=== PATIENT | female | born 1985 ===

== ENCOUNTER 2016-12-03 12:35 | Emergency (ER) | payer MEDICAID, OTHER ==
[2016-12-03 12:36] VITALS: BMI 34.4
[2016-12-03 12:52] VITALS: O2SAT 100
[2016-12-03] MEDS ORDERED: Sodium Chloride 0.9% 1,000 ML IV STA (13:34)
--- NOTE | 2016-12-03 13:49 | ED PDOC ---
Arrival/HPI <Eduard Salas - Last Filed: 12/03/16 14:02> - General Historian: Patient, Partner - History of Present Illness Time/Duration: 24 hours Symptom Onset: Sudden Symptom Course: Unchanged Quality: Cramping Activities at Onset: Rest Context: Home <YIMI PATEL - Last Filed: 12/03/16 15:05> - General Chief Complaint: Fever - History of Present Illness Narrative History of Present Illness (Text): 12/03/16 13:38 Ms. 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 Patient speaks mostly kyrgyz and translation was provided by patients significant other when needed. Patient reports that late last night around midnight she had 2-3 episodes of cream colored, non-bloody, non-bilious and non-projectile vomiting. Patient also reports subjective fever, which was not measured, and chills at that time that she has not experienced since last night. She reports that she also had a few episodes of non-bloody watery diarrhea since this time as well. Patient reports that she has not experienced this before and also reports that she hasn't taken any medications since this all started. She states that she has not been able to tolerate PO intake of fluids without N/V since this started. She endorses ROS as listed above and denies weight loss, headache, vision changes, dysphagia, chest pain, palpitations, SOB, cough, wheezing, burning with urination, abnormal vaginal bleeding or any numbness/tingling/ weakness of any of her extremities. (YIMI PATEL) Past Medical History - Provider Review Nursing Documentation Reviewed: Yes - Travel History Have you recently traveled outside [place] w/in the past 3 mons?: No - Past History Past History: Non-Contributing - Infectious Disease Hx of Infectious Diseases: None - Tetanus Immunization Tetanus Immunization: Unknown - Reproductive Menopause: No - Cardiac Hx Cardiac Disorders: No - Pulmonary Hx Respiratory Disorders: No - Neurological Hx Neurological Disorder: No - HEENT Hx HEENT Disorder: No - Renal Hx Renal Disorder: No - Endocrine/Metabolic Hx Endocrine Disorders: No - Hematological/Oncological Hx Blood Disorders: Yes Hx Anemia: Yes - Integumentary Hx Dermatological Disorder: No - Musculoskeletal/Rheumatological Hx Musculoskeletal Disorders: No - Gastrointestinal Hx Gastrointestinal Disorders: No - Genitourinary/Gynecological Hx Genitourinary Disorders: Yes (PELVIC PAIN) - Psychiatric Hx Psychophysiologic Disorder: No Hx Substance Use: No - Surgical History Other/Comment: PELVIC LAPAROTOMY, OVARIAN CYSTECTOMY - Anesthesia Hx Anesthesia: Yes Hx Anesthesia Reactions: No Hx Malignant Hyperthermia: No <YIMI PATEL - Last Filed: 12/03/16 15:05> Family/Social History - Physician Review Nursing Documentation Reviewed: Yes Family/Social History: No Known Family HX Smoking Status: Light Smoker < 10 Cigarettes Daily Hx Alcohol Use: No Hx Substance Use: No <YIMI PATEL - Last Filed: 12/03/16 15:05> Allergies/Home Meds <Eduard Salas - Last Filed: 12/03/16 14:02> <YIMI PATEL - Last Filed: 12/03/16 15:05> Allergies/Adverse Reactions: Allergies No Known Allergies Allergy (Verified 12/03/16 12:50) Review of Systems - Physician Review All systems were reviewed & negative as marked: Yes - Review of Systems Constitutional: Fevers, Other (chills). absent: Normal Eyes: Normal. absent: Vision Changes ENT: Normal. absent: Sore Throat Respiratory: Normal. absent: SOB, Cough, Wheezing Cardiovascular: Normal. absent: Chest Pain, Palpitations Gastrointestinal: Stool Changes, Diarrhea (non bloody), Nausea, Vomiting (non bloody, non bilious, and non projectile). absent: Normal Genitourinary Female: Normal. absent: Dysuria Musculoskeletal: Normal. absent: Back Pain, Neck Pain Skin: Normal. absent: Rash Neurological: Normal. absent: Headache, Dizziness <YIMI PATEL - Last Filed: 12/03/16 15:05> Physical Exam Vital Signs Reviewed: Yes Temperature: Afebrile Blood Pressure: Normal Pulse: Tachycardic Respiratory Rate: Normal Appearance: Positive for: Well-Appearing, Non-Toxic, Comfortable Pain Distress: None Mental Status: Positive for: Alert and Oriented X 3 - Systems Exam Head: Present: Atraumatic, Normocephalic Pupils: Present: PERRL Extroacular Muscles: Present: EOMI Conjunctiva: Present: Normal Ears: Present: Normal Mouth: Present: Dry Pharnyx: Present: Normal. No: ERYTHEMA, EXUDATE, TONSILS ENLARGED Neck: Present: Normal Range of Motion, Trachea Midline. No: Meningeal Signs, JVD Respiratory/Chest: Present: Clear to Auscultation, Good Air Exchange. No: Respiratory Distress, Accessory Muscle Use, Wheezes, Decreased Breath Sounds, Rales, Retracting, Rhonchi, Tachypneic, Tender to Palpation Cardiovascular: Present: Normal S1, S2, Peripheal Pulses Present, Tachycardic. No: Regular Rate and Rhythm, Murmurs, Irregular Rhythm, Bradycardic, Rub, Gallop , Muffled Abdomen: Present: Normal Bowel Sounds, Other (Negative murphys sign). No: Tenderness, Distention, Peritoneal Signs, Rebound, Guarding Back: Present: Normal Inspection. No: CVA Tenderness, Midline Tenderness, Paraspinal Tenderness Upper Extremity: Present: Normal Inspection, Normal ROM, NORMAL PULSES, Capillary Refill < 2s. No: Cyanosis, Edema Lower Extremity: Present: Normal Inspection, NORMAL PULSES, Capillary Refill < 2 s. No: Edema, CALF TENDERNESS Neurological: Present: GCS=15, CN II-XII Intact, Speech Normal Skin: Present: Warm, Dry, Normal Color. No: Rashes Lymphatic: No: Cervical Adenopathy Psychiatric: Present: Alert, Oriented x 3, Normal Insight, Normal Concentration <YIMI PATEL - Last Filed: 12/03/16 15:05> Vital Signs Temp Pulse Resp BP Pulse Ox 12/03/16 14:56 98 F 99 H 20 130/72 100 12/03/16 12:51 99.4 F 120 H 18 144/86 100 Medical Decision Making <Eduard Salas - Last Filed: 12/03/16 14:02> - Lab Interpretations I have reviewed the lab results: Yes - EKG Interpretation Interpreted by ED Physician: Yes Type: 12 lead EKG <YIMI PATEL - Last Filed: 12/03/16 15:05> ED Course and Treatment: 12/03/16 14:03 Pt seen and evaluated with the medical billing supervisor.Agree with HPI,clinical findings ,and treatment plan. 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 Plan: -CBC, CMP, Lipase -EKG for tachycardia -1L NS bolus -4mg Zofran ODT -Reassess and disposition Prior Visits: All reports and results from previous visits were reviewed. Several Visits from April to July of this year for abnormal vaginal bleeding/ uterine pain and was eventually diagnosed with endometrial polyp and borderline serous tumor of left ovary that was surgically removed. 12/03/16 14:50 Patient reports feeling subjectively better overall after zofran and NS bolus. Discussed with patient pertinent lab findings and the importance of following up with her primary care doctor. She verbalizes understaning and is in agreement. Patient stating that she wants to go home at this time. (YIMI PATEL) - Lab Interpretations Lab Results: 12/03/16 14:10 12/03/16 14:10 Lab Results 12/03/16 14:10: Sodium 141, Potassium 3.9, Chloride 102, Carbon Dioxide 26, Anion Gap 17, BUN 13, Creatinine 0.7, Est GFR ( Amer) > 60, Est GFR (Non- Af Amer) > 60, Random Glucose 104, Calcium 9.2, Total Bilirubin 0.8, AST 220 H, ALT 124 H, Alkaline Phosphatase 110, Total Protein 7.7, Albumin 4.6, Globulin 3.1, Albumin/Globulin Ratio 1.5, Lipase 111 12/03/16 14:10: WBC 10.9, RBC 4.79, Hgb 10.4 L, Hct 35.6 L, MCV 74.3 L, MCH 21.7 L, MCHC 29.2 L, RDW 14.7 H, Plt Count 302, MPV 9.9, Gran % 87.9 H, Lymph % (Auto) 7.9 L, Iron % (Auto) 3.9, Eos % (Auto) 0.2 L, Baso % (Auto) 0.1, Gran # 9.59 H, Lymph # 0.9 L, Iron # 0.4, Eos # 0.0, Baso # 0.01 - EKG Interpretation EKG Interpretation (Text): 12/03/16 13:57 Sinus tachycardia at 120bpm (YIMI PATEL) - Medication Orders Current Medication Orders: Discontinued Medications Sodium Chloride (Sodium Chloride 0.9%) 1,000 mls @ 999 mls/hr IV .Q1H1M STA Stop: 12/03/16 14:34 Last Admin: 12/03/16 13:49 Dose: 999 mls/hr eMAR Start Stop Document 12/03/16 13:49 IT (Rec: 12/03/16 13:51 IT [id number]) Intravenous Solution Start Date 12/03/16 Start Time 13:50 End Date 12/03/16 End time 14:50 Total Infusion Time 60 Ondansetron HCl (Zofran Odt) 4 mg PO STAT STA Stop: 12/03/16 13:38 Last Admin: 12/03/16 13:49 Dose: 4 mg - PA / ACADEMIC AFFAIRS SPECIALIST / Resident Statement / has reviewed & agrees with the documentation as recorded. / has examined the patient and agrees with the treatment plan. <Eduard Salas - Last Filed: 12/03/16 14:02> Disposition/Present on Arrival <Eduard Salas - Last Filed: 12/03/16 14:02> - Present on Arrival Any Indicators Present on Arrival: No History of DVT/PE: No History of Uncontrolled Diabetes: No Urinary Catheter: No History of Decub. Ulcer: No History Surgical Site Infection Following: None - Disposition Have Diagnosis and Disposition been Completed?: Yes Disposition Time: 15:05 <YIMI PATEL - Last Filed: 12/03/16 15:05> - Disposition Diagnosis: Viral gastroenteritis, Elevated liver enzymes Disposition: HOME/ ROUTINE Patient Problems: Current Active Problems Problem Status Onset Elevated liver enzymes Acute Viral gastroenteritis Acute Condition: IMPROVED Discharge Instructions (ExitCare): Gastroenteritis (ED) Additional Instructions: Beti Dial, thank you for letting us take care of you today. Your provider was Dr. Salas. You were treated for viral gastroenteritis. The emergency medical care you received today was directed at your acute symptoms. If you were prescribed any medication, please fill it and take as directed. It may take several days for your symptoms to resolve. Return to the Emergency Department if your symptoms worsen, do not improve, or if you have any other problems. PLEASE FOLLOW UP WITH YOUR PRIMARY CARE DOCTOR WITHIN ONE TO TWO WEEKS TO DISCUSS ELEVATED LIVER ENZYMES Please contact your doctor or call one of the physicians/clinics you have been referred to that are listed on the Patient Visit Information form that is included in your discharge packet. Bring any paperwork you were given at discharge with you along with any medications you are taking to your follow up visit. Our treatment cannot replace ongoing medical care by a primary care provider (PCP) outside of the emergency department. Thank you for allowing the [facility] team to be part of your care today. Prescriptions: Ondansetron ODT [Zofran ODT] 4 mg PO TID PRN #10 odt PRN Reason: Nausea/Vomiting Forms: [employer] (Ghanaian)
[2016-12-03 14:14] LABS: BASO # 0.01 K/mm3 (0.0-2.0); BASO % 0.1 % (0.0-3.0); EOS % 0.2 % (1.5-5.0); GRAN # 9.59 (1.4-6.5); GRAN % 87.9 % (50.0-68.0); HEMATOCRIT 35.6 % (36.0-48.0); LYMPH # 0.9 (1.2-3.4); LYMPH % 7.9 % (22.0-35.0); MEAN CELL VOLUME 74.3 fl (80.0-105.0); MEAN CORPUSCULAR HEMOGLOBIN 21.7 pg (25.0-35.0); MEAN CORPUSCULAR HGB CONC 29.2 g/dl (31.0-37.0); MEAN PLATELET VOLUME 9.9 fl (7.0-11.0); MONO # 0.4 (0.1-0.6); MONO % 3.9 % (1.0-6.0); RED CELL DISTRIBUTION WIDTH 14.7 % (11.5-14.5); WHITE BLOOD COUNT 10.9 10^3/ul (4.5-11.0)
[2016-12-03 14:24] LABS: ALB/GLOB RATIO 1.5 (1.1-1.8); ALKALINE PHOSPHATASE 110 U/L (38-126); ALT/SGPT 124 U/L (7-56); AST/SGOT 220 U/L (14-36); BILIRUBIN,TOTAL 0.8 mg/dL (0.2-1.3); BLOOD UREA NITROGEN 13 mg/dL (7-21); CALCIUM 9.2 mg/dL (8.4-10.5); CARBON DIOXIDE 26 mmol/L (21-33); CHLORIDE 102 mmol/L (98-107); GFR AFRICAN-AMERICAN > 60; GLUCOSE,RANDOM 104 mg/dL (70-110); LIPASE 111 U/L (23-300); POTASSIUM 3.9 mmol/L (3.6-5.0); SODIUM 141 mmol/L (132-148); TOTAL PROTEIN 7.7 g/dL (5.8-8.3)
[2016-12-03 14:57] VITALS: BP 130/72; PULSE 99; RESP 20; TEMP 98
--- NOTE | 2016-12-04 07:58 | CARD ---
APPROVED REPORT EKG Measurement Heart [id number] <Conclusion> Sinus tachycardia Incomplete right bundle branch block LAD PRWP Nonspecific T wave abnormality Prolonged QTc
== END 2016-12-03 15:08 | disposition home or self-care (01) ==
LOC: ED 12:35
DX: A08.4 Viral intestinal infection, unspecified (principal); R74.8 Abnormal levels of other serum enzymes
CPT/HCPCS: 80053; 83690; 85025; 93005; 96360; 99284; J7040

== ENCOUNTER 2017-02-26 19:22 | Emergency (ER) | payer MEDICAID ==
[2017-02-26 19:35] VITALS: BP 138/97; PULSE 79; RESP 18; TEMP 98.1; O2SAT 100; BMI 34.2
[2017-02-26] MEDS ORDERED: DiphenhydrAMINE 50 mg/ml Inj IVP STA (19:40)
--- NOTE | 2017-02-26 19:42 | ED PDOC ---
Arrival/HPI - General Chief Complaint: Headache Time Seen by Provider: 02/26/17 19:23 - History of Present Illness Narrative History of Present Illness (Text): 02/26/17 19:41 32 yo female, no prior hx, presents with frye. pt states frye started this am. pt states no fevers, nausea vomiting, diarrhea, blurry vision, neck pain. took advil with minimal relief. no other complaints. Past Medical History - Past History Past History: Non-Contributing - Infectious Disease Hx of Infectious Diseases: None - Tetanus Immunization Tetanus Immunization: Unknown - Cardiac Hx Cardiac Disorders: No - Pulmonary Hx Respiratory Disorders: No - Neurological Hx Neurological Disorder: No - HEENT Hx HEENT Disorder: No - Renal Hx Renal Disorder: No - Endocrine/Metabolic Hx Endocrine Disorders: No - Hematological/Oncological Hx Blood Disorders: Yes Hx Anemia: Yes - Integumentary Hx Dermatological Disorder: No - Musculoskeletal/Rheumatological Hx Musculoskeletal Disorders: No - Gastrointestinal Hx Gastrointestinal Disorders: No - Genitourinary/Gynecological Hx Genitourinary Disorders: Yes (PELVIC PAIN) - Psychiatric Hx Psychophysiologic Disorder: No Hx Substance Use: No - Surgical History Other/Comment: PELVIC LAPAROTOMY, OVARIAN CYSTECTOMY - Anesthesia Hx Anesthesia: Yes Hx Anesthesia Reactions: No Hx Malignant Hyperthermia: No Family/Social History - Physician Review Nursing Documentation Reviewed: Yes Family/Social History: Unknown Family HX Smoking Status: Never Smoked Hx Alcohol Use: Yes Frequency of alcohol use: Socially Hx Substance Use: No Allergies/Home Meds Allergies/Adverse Reactions: Allergies No Known Allergies Allergy (Verified 12/03/16 12:50) Review of Systems - Review of Systems Constitutional: Normal Eyes: Normal ENT: Normal Respiratory: Normal Cardiovascular: Normal Gastrointestinal: Normal Genitourinary Female: Normal Musculoskeletal: Normal Skin: Normal Neurological: Headache Endocrine: Normal Hemo/Lymphatic: Normal Psychiatric: Normal Physical Exam Vital Signs Temp Pulse Resp BP Pulse Ox 02/26/17 19:35 98.1 F 79 18 138/97 H 100 Temperature: Afebrile Blood Pressure: Normal Pulse: Regular Respiratory Rate: Normal Appearance: Positive for: Well-Appearing, Non-Toxic, Comfortable Pain Distress: None Mental Status: Positive for: Alert and Oriented X 3 - Systems Exam Head: Present: Atraumatic, Normocephalic Pupils: Present: PERRL Extroacular Muscles: Present: EOMI Conjunctiva: Present: Normal Mouth: Present: Moist Mucous Membranes Neck: Present: Normal Range of Motion Respiratory/Chest: Present: Clear to Auscultation, Good Air Exchange. No: Respiratory Distress, Accessory Muscle Use Cardiovascular: Present: Regular Rate and Rhythm, Normal S1, S2. No: Murmurs Abdomen: Present: Normal Bowel Sounds. No: Tenderness, Distention, Peritoneal Signs Back: Present: Normal Inspection Upper Extremity: Present: Normal Inspection. No: Cyanosis, Edema Lower Extremity: Present: Normal Inspection. No: Edema Neurological: Present: GCS=15, CN II-XII Intact, Speech Normal, Motor Func Grossly Intact, Normal Sensory Function, Normal Cerebellar Funct Skin: Present: Warm, Dry, Normal Color. No: Rashes Psychiatric: Present: Alert, Oriented x 3, Normal Insight, Normal Concentration Medical Decision Making ED Course and Treatment: 02/26/17 20:19 frye benign onsent - no thunderclap featrues well appearing in nad. 819 pt reassessd states all symptoms resolved. smiling. noted mild luekocytosis and anemia (known hx). pt declines further eval, requesting immediate dc w/o ua results. - Lab Interpretations Lab Results: 02/26/17 19:57 02/26/17 19:57 Lab Results 02/26/17 19:57: Sodium 139, Potassium 4.0, Chloride 103, Carbon Dioxide 24, Anion Gap 15, BUN 11, Creatinine 0.7, Est GFR ( Amer) > 60, Est GFR (Non- Af Amer) > 60, Random Glucose 92, Calcium 9.7, Total Bilirubin 0.3, AST 30, ALT 49, Alkaline Phosphatase 109, Total Protein 8.0, Albumin 4.4, Globulin 3.6, Albumin/Globulin Ratio 1.2 02/26/17 19:57: PT 12.6 H, INR 1.15 H, APTT 30.4 02/26/17 19:57: WBC 11.9 H, RBC 4.86, Hgb 8.9 L, Hct 33.1 L, MCV 68.1 L D, MCH 18.3 L, MCHC 26.9 L, RDW 16.6 H, Plt Count 408, MPV 9.8, Gran % 60.2, Lymph % ( Auto) 32.3, [place] % (Auto) 6.0, Eos % (Auto) 1.2 L, Baso % (Auto) 0.3, Gran # 7.16 H, Lymph # 3.8 H, [place] # 0.7 H, Eos # 0.1, Baso # 0.04 - Medication Orders Current Medication Orders: Discontinued Medications Diphenhydramine HCl (Benadryl) 25 mg IVP STAT STA Stop: 02/26/17 19:41 Last Admin: 02/26/17 19:50 Dose: 25 mg IVP Administration Document 02/26/17 19:50 OCS (Rec: 02/26/17 19:50 OCS [id number]) Charges for Administration # of IVP Administrations 1 Metoclopramide HCl (Reglan) 10 mg IVP STAT STA Stop: 02/26/17 19:41 Last Admin: 02/26/17 19:50 Dose: 10 mg IVP Administration Document 02/26/17 19:50 OCS (Rec: 02/26/17 19:50 OCS [id number]) Charges for Administration # of IVP Administrations 1 Disposition/Present on Arrival - Present on Arrival Any Indicators Present on Arrival: No History of DVT/PE: No History of Uncontrolled Diabetes: No Urinary Catheter: No History of Decub. Ulcer: No History Surgical Site Infection Following: None - Disposition Have Diagnosis and Disposition been Completed?: Yes Diagnosis: Headache, Anemia Disposition: HOME/ ROUTINE Disposition Time: 20:20 Condition: STABLE Discharge Instructions (ExitCare): Anemia (ED), Acute Headache (ED) Print Language: OCCITAN Additional Instructions: please discuss results of you labs with your doctor. return to any er with any worsening symptoms or concerns. Prescriptions: Acetaminophen/Butalbital/Caf [Fioricet] 1 tab PO Q8 PRN #20 tab PRN Reason: Headache Referrals: Floridalma Wallace MD [Primary Care Provider] - Follow up with primary [facility] [Outside] - Follow up with primary [facility] [Outside] - Follow up with primary Srinivas Bal MD [Staff Provider] - Follow up with primary Forms: [employer] (Bhutanese)
[2017-02-26 20:10] LABS: BASO # 0.04 K/mm3 (0.0-2.0); BASO % 0.3 % (0.0-3.0); EOS # 0.1 (0.0-0.7); EOS % 1.2 % (1.5-5.0); GRAN # 7.16 (1.4-6.5); GRAN % 60.2 % (50.0-68.0); HEMATOCRIT 33.1 % (36.0-48.0); LYMPH # 3.8 (1.2-3.4); LYMPH % 32.3 % (22.0-35.0); MEAN CELL VOLUME 68.1 fl (80.0-105.0); MEAN CORPUSCULAR HEMOGLOBIN 18.3 pg (25.0-35.0); MEAN CORPUSCULAR HGB CONC 26.9 g/dl (31.0-37.0); MEAN PLATELET VOLUME 9.8 fl (7.0-11.0); MONO # 0.7 (0.1-0.6); RED CELL DISTRIBUTION WIDTH 16.6 % (11.5-14.5); WHITE BLOOD COUNT 11.9 10^3/ul (4.5-11.0)
[2017-02-26 20:14] LABS: ALB/GLOB RATIO 1.2 (1.1-1.8); ALKALINE PHOSPHATASE 109 U/L (38-126); ALT/SGPT 49 U/L (7-56); AST/SGOT 30 U/L (14-36); BILIRUBIN,TOTAL 0.3 mg/dL (0.2-1.3); BLOOD UREA NITROGEN 11 mg/dL (7-21); CALCIUM 9.7 mg/dL (8.4-10.5); CARBON DIOXIDE 24 mmol/L (21-33); CHLORIDE 103 mmol/L (98-107); GFR AFRICAN-AMERICAN > 60; GLUCOSE,RANDOM 92 mg/dL (70-110); SODIUM 139 mmol/L (132-148)
[2017-02-26 20:15] LABS: INR 1.15 (0.93-1.08); PARTIAL THROMBOPLASTIN TIME 30.4 Seconds (25.1-36.5)
== END 2017-02-26 20:45 | disposition home or self-care (01) ==
LOC: ED 19:22
DX: D64.9 Anemia, unspecified (principal); R51 Headache
CPT/HCPCS: 80053; 85025; 85610; 85730; 96374; 96375; 99285; J1200; J2765